=== PATIENT | female | born 1945 | race Caucasian/White ===

== ENCOUNTER → 2021-07-27 09:31 | Outpatient (CLI) | payer MEDICARE, OTHER, SELFPAY ==
[2021-07-27 10:12] LABS: COVID19 -Nasal RAPID Negative (Negative)
== END ==
PROVIDERS: Referring Provider Nurse Practitioner Family; Visit Provider Nurse Practitioner Family
DX: J02.9 Acute pharyngitis, unspecified (principal); R09.81 Nasal congestion; Z20.822 Contact with and (suspected) exposure to COVID-19
CPT/HCPCS: 87070; 87635

== ENCOUNTER → 2022-07-17 14:33 | Outpatient (CLI) | payer MEDICARE, OTHER, SELFPAY | PROVIDERS: Visit Provider Physician Assistant Medical | DX: N39.0 Urinary tract infection, site not specified (principal) | CPT/HCPCS: 87077; 87086; 87186 ==

== ENCOUNTER → 2022-10-07 23:11 | Outpatient (ROUT) | payer MEDICARE, OTHER, SELFPAY ==
[2022-10-08 11:26] LABS: Appearance Urine UA SL CLOUDY; Bilirubin Urine UA NEGATIVE (NEGATIVE); Color Urine UA YELLOW; Glucose Urine UA NEGATIVE (Negative); Ketones Urine UA TRACE (NEGATIVE); Leukocyte Esterase Urine UA 2+ (NEGATIVE); Nitrite Urine UA NEGATIVE (Negative); Occult Blood Urine UA 1+ (Negative); Protein Urine UA NEGATIVE (Negative); Urobilinogen Urine UA 0.2 E.U./dL (0.2)
[2022-10-08 11:36] LABS: Bacteria Urine Moderate (10-30); Culture Indicated Urine Specimen Cultured; RBC Urine 1-5/HPF (0-5/HPF); WBC Urine 30-100/HPF (0-5/HPF)
== END ==
PROVIDERS: Visit Provider Physician Assistant Medical
DX: N39.0 Urinary tract infection, site not specified (principal)
CPT/HCPCS: 81001; 87077; 87086; 87186

== ENCOUNTER → 2024-01-29 12:56 | Outpatient (CLI) | payer MEDICARE, OTHER, SELFPAY | PROVIDERS: Visit Provider Nurse Practitioner Family | DX: R30.0 Dysuria (principal) | CPT/HCPCS: 87086 ==

== ENCOUNTER 2024-12-30 13:41 | Emergency (ER) | payer MEDICARE, OTHER, SELFPAY ==
[2024-12-30 13:59] VITALS: BP 159/86; PULSE 83; RESP 20; TEMP 36.6; O2SAT 98; BMI 31.2
--- NOTE | 2024-12-30 14:05 | DI.RAD.S_ITS ---
PROCEDURE: XR SHOULDER RT MIN 2V INDICATIONS: glf TECHNIQUE: 3 views of the shoulder were acquired. COMPARISON: None. FINDINGS: Bones: No fractures or dislocations. No suspicious bony lesions. Visualized ribs appear intact. Soft tissues: No suspicious soft tissue calcifications. IMPRESSION: No acute bony abnormality. Dictated by: Lee Blackman M.D. on 12/30/2024 at 15:23 Approved by: Lee Blackman M.D. on 12/30/2024 at 15:24
--- NOTE | 2024-12-30 15:12 | ED.FALL ---
HPI - Fall <Maria Del Rosario Thurston PA-C - Last Filed: 12/30/24 18:17> General Chief Complaint: Fall Stated Complaint: Fall, shoulder px Time Seen by Provider: 12/30/24 15:12 Source: patient Mode of arrival: Ambulatory History of Present Illness HPI Narrative: 79-year-old female presents with right shoulder pain. She had a ground level fall she slipped on some ice and landed directly on her right shoulder. She reports no precipitating events, she did not strike her head, there was no dizziness, she did not fall on an outstretched arm her main complaint is at the right shoulder joint itself. She is denying any numbness or tingling or loss of sensation distally, she reports no neck pain. All other systems are reviewed and are negative. Related Data Allergies Allergy/AdvReac Type Severity Reaction Status Date / Time morphine Allergy Rash Verified 01/29/24 12:43 Review of Systems <Maria Del Rosario Thurston PA-C - Last Filed: 12/30/24 18:17> Review of Systems Narrative: All other systems reviewed and are negative. Patient History <Maria Del Rosario Thurston PA-C - Last Filed: 12/30/24 18:17> Social History Smoking Status: Never smoker Smoking Status: Never smoker Exam <Maria Del Rosario Thurston PA-C - Last Filed: 12/30/24 18:17> Initial Vital Signs Initial Vital Signs: Vital Signs Temperature 98 F 12/30/24 13:59 Pulse Rate 83 12/30/24 13:59 Respiratory Rate 20 12/30/24 13:59 Blood Pressure 159/86 H 12/30/24 13:59 Pulse Oximetry 98 12/30/24 13:59 Oxygen Delivery Method Room Air 12/30/24 13:59 Vital signs reviewed and are normal except for elevated blood pressure reading today. Const General: cooperative, healthy appearing, comfortable, well developed, well groomed and No acute distress Other: Smiling, ambulatory, pleasantly conversing, no distress, she is here with her . Eyes General: Yes appearance normal, both eyes and all related structures Neck Neck: normal visual inspection, full ROM and supple Other: No focal bony midline tenderness of the cervical spine. Mild tenderness without guarding of the right upper trapezium. No swelling. She is symmetric. Resp Effort & Inspection: normal respiratory effort and able to speak in complete sentences Auscultation: clear to auscultation bilaterally, no rales, no rhonchi and no wheezes Cardio Rate: regular rate Rhythm: regular rhythm Back/Spine/Pelvis Back: normal to inspection and No back tenderness Skin General: no rashes or lesions noted, elasticity normal and turgor normal Neuro Other: No focal neurologic deficits involving the right upper extremity, pinch mechanism is intact, radial, ulnar, median nerves are intact. Sensory is intact. Extrem Right upper extremity: normal to inspection, normal capillary refill and shoulder/upper arm Details: normal to inspection, tenderness and abnormal ROM; no abrasions, no ecchymosis and no crepitus; no edema and joint enlargement noted Other: Active range of motion is limited due to her pain, she demonstrates forward flexion to about 45?, passively she is negative drop-arm but it causes a lot of pain and she can only hold it for so long. Pain with abduction, positive anterior lift-off test. Empty can also is positive. Extension is intact. Yergason's is negative. She has focal tenderness along the teres minor insertion as well as the anterior shoulder joint, no AC joint tenderness, clavicles are symmetric. No focal bony tenderness involving the humeral head or humerus itself. <Jesusita Espinoza DO - Last Filed: 12/31/24 07:50> Initial Vital Signs Initial Vital Signs: Vital Signs Temperature 98 F 12/30/24 13:59 Pulse Rate 83 12/30/24 13:59 Respiratory Rate 20 12/30/24 13:59 Blood Pressure 159/86 H 12/30/24 13:59 Pulse Oximetry 98 12/30/24 13:59 Oxygen Delivery Method Room Air 12/30/24 13:59 Course <Maria Del Rosario Thurston PA-C - Last Filed: 12/30/24 18:17> Orders Ordered: Discontinued Medications Ketorolac Tromethamine (Ketorolac 30 Mg/Ml Vial) 15 mg IM NOW ONE Stop: 12/30/24 15:30 Last Admin: 12/30/24 15:38 Dose: 15 mg Documented By: DIAN Vital Signs Vital signs: Vital Signs - 8 hr 12/30/24 13:59 12/30/24 15:51 Temperature 98 F Pulse Rate 83 Respiratory Rate 20 16 Blood Pressure 159/86 H Pulse Oximetry 98 Oxygen Delivery Method Room Air <Jesusita Espinoza, - Last Filed: 12/31/24 07:50> Orders Ordered: Discontinued Medications Ketorolac Tromethamine (Ketorolac 30 Mg/Ml Vial) 15 mg IM NOW ONE Stop: 12/30/24 15:30 Last Admin: 12/30/24 15:38 Dose: 15 mg Documented By: DINA Vital Signs Vital signs: Vital Signs - 8 hr 12/30/24 13:59 12/30/24 15:51 Temperature 98 F Pulse Rate 83 Respiratory Rate 20 16 Blood Pressure 159/86 H Pulse Oximetry 98 Oxygen Delivery Method Room Air MDM - Fall <Maria Del Rosario Thurston PA-C - Last Filed: 12/30/24 18:17> Imaging Data Extremity x-ray #1: My Impression: Deferred to radiologist's interpretation below. Radiologist's Impression: PROCEDURE: XR SHOULDER RT MIN 2V INDICATIONS: glf TECHNIQUE: 3 views of the shoulder were acquired. COMPARISON: None. FINDINGS: Bones: No fractures or dislocations. No suspicious bony lesions. Visualized ribs appear intact. Soft tissues: No suspicious soft tissue calcifications. IMPRESSION: No acute bony abnormality. Dictated by: Lee Blackman M.D. on 12/30/2024 at 15:23 Approved by: Lee Blackman M.D. on 12/30/2024 at 15:24 [facility] Narrative Medical decision making narrative: Her clinical findings on exam are consistent with soft tissue injury status post fall and direct impact of the right shoulder joint but there is concern for possible rotator cuff involvement and partial tear, she has significant pain with the empty can and lift-off, drop-arm test was unequivocal. Pain with abduction. There is no swelling or breaks in the skin, her x-rays were negative. I have placed her in a sling but we discussed avoidance of frozen shoulder and to be active this is merely for the drive home, I have referred her to Orthopedics but she may also follow up with her PCP. We discussed pain management, she was given Toradol injection today I have asked her to hold off on any additional NSAIDs until after midnight. She may take Tylenol in her interim, ice 10-15 minutes at a time. Repeat as often as needed. Red flag warning signs please do not hesitate to seek medical attention if you develop any swelling, increased pain, any new symptoms, any numbness tingling or weakness, hopefully you see some gradual improvement in the next 1-2 weeks. You may warrant physical therapy again this can be arranged by your PCP, you may warrant additional imaging such as MRI which can also be coordinated by your PCP. Discharge Plan Departure Patient Disposition: Home Clinical Impression: Rotator cuff injury Qualifiers: Encounter type: initial encounter Laterality: right Qualified Code(s): S46.001A - Unspecified injury of muscle(s) and tendon(s) of the rotator cuff of right shoulder, initial encounter Instructions: DI for Rotator Cuff Injury, How to Prevent Falls Activity Restrictions/Additional Instructions: Please do follow up with your PCP, you may wish to follow up with orthopedist, I have listed an excellent orthopod down below, please use the sling sparingly as we want to avoid a frozen shoulder, practice pendulums, ice, gentle range of motion, Tylenol or ibuprofen as needed for pain, I have given you a dose of Toradol injection today which is a strong anti-inflammatory so do not take any additional ibuprofen until after midnight. Do not hesitate to seek medical attention if anything changes or worsens. Use some pillow supports, use caution against repeat fall, shower chair is recommended as well. Referrals: Marta Jacobo MD [Primary Care Provider] - Safia Sevilla MD [Physician] - (79 yo female fall onto right shoulder. Concern for rotator cuff tear. Neg X-rays.) Stand Alone Forms: Patient Portal/API/Survey ED Sign-out <Jesusita Espinoza DO - Last Filed: 12/31/24 07:50> Cosign ED Attending Halature Attestation: I was immediately available in the department for consultation.
[2024-12-30] MEDS: KETOROLAC 30 MG/ML VIAL 15 MG IM (15:38)
[2024-12-30 15:51] VITALS: RESP 16
== END 2024-12-30 15:52 | disposition home or self-care (01) ==
PROVIDERS: Emergency Provider Physician Assistant Medical; PCP Internal Medicine
DX: S46.001A Unspecified injury of muscle(s) and tendon(s) of the rotator cuff of right shoulder, initial encounter (principal); W00.0XXA Fall on same level due to ice and snow, initial encounter; Z88.6 Allergy status to analgesic agent
CPT/HCPCS: 73030; 96372; 99283; 99284; J1885

== ENCOUNTER → 2025-01-19 10:57 | Outpatient (CLI) | payer MEDICARE, OTHER, SELFPAY ==
--- NOTE | 2025-01-19 12:00 | DI.MRI.S_ITS ---
PROCEDURE: MR SHOULDER RT WO CON INDICATIONS: traumatic tear of right rotator cuff TECHNIQUE: Noncontrast oblique coronal T2 fast spin echo with fat saturation, oblique sagittal T1 spin echo and T2 fast spin echo with fat saturation, axial T1 spin echo and T2 fast spin echo with fat saturation through the shoulder. COMPARISON: [facility], [place], XR SHOULDER RT MIN 2V, 12/30/2024, 14:09. FINDINGS: Image quality: Excellent. Rotator cuff: There is full-thickness tearing of the entire supraspinatus and infraspinatus tendons with medial retraction and mild atrophy. Full-thickness tearing of the mid/superior subscapularis tendon at the humeral insertion site. Teres minor is intact. Bones and bursae: No bone marrow contusions or fractures. Moderate glenohumeral and acromioclavicular joint degeneration. The acromion demonstrates conventional anatomy, without an os acromiale. No pathologic subacromial-subdeltoid or subcoracoid bursal fluid is present. Capsule and soft tissues: Diffuse degenerative fraying of the glenoid labrum. Biceps tendon is subluxed medially and demonstrates partial-thickness tearing. The rotator interval appears normal, without fibrosis. The coracohumeral ligament is normal in thickness. IMPRESSION: 1. Full-thickness tearing of the subscapularis, supraspinatus, and infraspinatus tendons as above. 2. Acromioclavicular and glenohumeral joint osteoarthritis. 3. Biceps tendon subluxation and partial-thickness tearing. 4. Degenerative fraying of the glenoid labrum. Dictated by: Stoney Mathis M.D. on 01/19/2025 at 13:22 Approved by: Stoney Mathis M.D. on 01/19/2025 at 13:26
== END ==
PROVIDERS: PCP Internal Medicine; Referring Provider Physician Assistant; Visit Provider Physician Assistant
DX: S46.011A Strain of muscle(s) and tendon(s) of the rotator cuff of right shoulder, initial encounter (principal); S46.211A Strain of muscle, fascia and tendon of other parts of biceps, right arm, initial encounter; M19.011 Primary osteoarthritis, right shoulder; X58.XXXA Exposure to other specified factors, initial encounter
CPT/HCPCS: 73221

== ENCOUNTER → 2025-11-11 10:36 | Outpatient (CLI) | payer MEDICARE, OTHER, SELFPAY | PROVIDERS: PCP Internal Medicine; Visit Provider Chiropractor | DX: R30.0 Dysuria (principal) | CPT/HCPCS: 87086 ==